=== PATIENT | male | born 1980 | race Caucasian/White ===

== ENCOUNTER 2019-03-26 12:46 | Inpatient (IN) ==
[2019-03-26 16:24] LABS: POC Blood Urea Nitrogen 17 mg/dl (6-20); POC CO2 24 mmol/L (22-30); POC Calcium, Ionized 1.11 mmol/L (1.16-1.32); POC Chloride 105 mmol/L (96-108); POC Creatinine 0.7 mg/dl (0.7-1.2); POC Glucose, Random 85 mg/dL (70-105); POC Potassium 4.1 mmol/L (3.3-5.1); POC Sodium 139 mmol/L (133-145)
[2019-03-26 17:18] LABS: Amphetamine Screen,Urine SUSPECT POSITIVE (NONDETECTED); Barbiturate Screen,Urine NONE DETECTED (NONDETECTED); Benzodiazepines Screen,Urine SUSPECT POSITIVE (NONDETECTED); Cannabinoid Screen,Urine SUSPECT POSITIVE (NONDETECTED); Cocaine Screen,Urine NONE DETECTED (NONDETECTED); Opiate Screen,Urine NONE DETECTED (NONDETECTED); Oxycodone, Urine Screen NONE DETECTED (NONDETECTED); Phencyclidine Screen,Urine NONE DETECTED (NONDETECTED)
[2019-03-26] MEDS ORDERED: MIDAZOLAM 5 MG/5 ML VIAL IV ONE (17:30)
[2019-03-26] MEDS ORDERED: ONDANSETRON 4 MG/2 ML VIAL IV ONE (17:30)
[2019-03-26] MEDS ORDERED: DEXAMETHASONE 10 MG/ML VIAL IV ONE (17:30)
[2019-03-26] MEDS ORDERED: PHENYLEPHRINE 10 MG/ML VIAL IV ONE (17:30)
[2019-03-26] MEDS ORDERED: KETAMINE 100 MG/ML ML IV ONE (17:30)
[2019-03-26] MEDS ORDERED: HYDROmorphone 2 MG/ML VIAL IV ONE (17:30)
[2019-03-26] MEDS ORDERED: PROPOFOL 200 MG/20 ML VIAL IV ONE (17:30)
[2019-03-26] MEDS ORDERED: GLYCOPYRROLATE 0.2 MG/ML VIAL IV ONE (17:30)
[2019-03-26] MEDS ORDERED: LIDOCAINE HCL/PF 100 MG/5 ML SYRINGE IV ONE (17:30)
[2019-03-26] MEDS ORDERED: fentaNYL 100 MCG/2 ML VIAL IV ONE (17:30)
[2019-03-26] MEDS ORDERED: KETOROLAC 30 MG/ML VIAL IV PRN (17:57)
[2019-03-26] MEDS ORDERED: NALOXONE HCL 0.4 MG/ML VIAL IV PRN (17:57)
[2019-03-26] MEDS ORDERED: MEPERIDINE 25 MG/ML SYRINGE IV PRN (17:57)
[2019-03-26] MEDS ORDERED: IPRATROPIUM/ALBUTEROL 3 ML AMPUL.NEB NEB PRN ×2 (17:57→20:20)
[2019-03-26] MEDS ORDERED: ONDANSETRON 4 MG/2 ML VIAL IV PRN ×2 (17:57→20:20)
[2019-03-26] MEDS ORDERED: METHOCARBAMOL 1,000 MG/10 ML VIAL IV PRN (17:57)
[2019-03-26] MEDS ORDERED: HYDROmorphone 2 MG/ML VIAL IV PRN (17:57)
[2019-03-26] MEDS ORDERED: ACETAMINOPHEN 1,000 MG/100 ML BOTTLE IV ONE (17:57)
[2019-03-26] MEDS ORDERED: BENZOCAINE/MENTHOL 1 LOZENGE PO PRN (17:57)
[2019-03-26] MEDS ORDERED: MEPERIDINE 50 MG/ML INJECTION IM PRN (17:57)
[2019-03-26] MEDS ORDERED: PROMETHAZINE 25 MG/ML VIAL IM PRN (17:57)
[2019-03-26] MEDS ORDERED: LACTATED RINGERS 250 ML IV PRN (17:57)
[2019-03-26] MEDS ORDERED: FLUMAZENIL 0.1 MG/ML ML IV PRN (17:57)
[2019-03-26] MEDS ORDERED: LACTATED RINGERS 1,000 ML IV SCH (18:00)
--- NOTE | 2019-03-26 18:56 | Brief Operative Note ---
Date of procedure: 03/26/19 Pre-op diagnosis: Septic olecranon bursitis Post-op diagnosis: same Procedure: I & D and olecranon bursectomy of Right septic olecranon bursitis Grafts/Implants: No Anesthesia: GLMA Findings: septic bursitis Complications: none Surgeon: Russ Prescott Airline Hostess: Hussain Mars Estimated blood loss (cc): 50 Tourniquet Time (Minutes): 33 Specimens Removed/Pathology: other (infected olecranon bursa) Condition: stable Disposition: PACU
--- NOTE | 2019-03-26 19:39 | Internal Med History&Physical ---
Medical - H&P: HPI Patient information: Note initiated : 03/26/19 at 7:38 pm Service Date, if different from initiated Date: [] Patient: Leonard Mathias 38 y/o M admitted on 03/26/19 for Infected elbow. Chief Complaint: [] Chief complaint: Right septic olecranon bursitis History of present illness: Mr. Mathias is a 38 year old M transferred from [facility]. Patient was admitted/ with right elbow swelling and pain and was diagnosed with right olecranon bursitis which was tapped and revealed MRSA. Patient was on Zosyn and vancomycin. However over the ensuing 48 hours of hospitalization patient failed to improve with extension of redness cellulitis down to the hand and pro ximally into the axilla. Subsequently orthopedics Dr. Prescott was consulted by Dr. Flores market intelligence consultant at [facility]. Patient initially presented with a white count of 21,000 which improved to 11,000 x 48 hours into treatment. Patient was transferred to [facility] in stable state and subsequently underwent operative intervention with olecranon bursectomy. Postoperatively patient was reviewed on the medical floor. I reviewed the charts from prior hospitalization. Patient carries a history of prediabetes with last A1c 6.4. He is postop. Patient is homeless has a history of methamphetamine abuse. His drug screen was positive however patient denied using IV drugs as per physician at [facility]. Review of systems 10 point review of system was performed and is negative except as discussed above Medical - H&P: PMH Medical history: Hypertension Substance abuse Tobacco dependence Pertinent family history: Nonsignificant Social history: Daily smoker Occasional alcohol Methamphetamine Medical - H&P: Meds Home Medications Medication Instructions Recorded Confirmed Type No Known Home Meds 03/26/19 03/26/19 History Allergies Allergy/AdvReac Type Severity Reaction Status Date / Time No Known Drug Allergies Allergy Verified 01/24/18 12:39 Medical - H&P: Exam - Constitutional Vitals: Temp Pulse Resp BP Pulse Ox 97.9 F 94 H 14 155/92 99 03/26/19 19:18 03/26/19 19:28 03/26/19 19:28 03/26/19 19:28 03/26/19 19:28 General appearance: morbidly obese Exam: Alert oriented Eye movement symmetrical Oral cavity dry No ear nose discharge Head normocephalic Neck no lymphadenopathy S1-S2 regular rhythm no murmur Diminished breath sounds bases Right upper extremity postoperative dressing Abdomen soft nontender Lower extremity no cyanosis clubbing no joint swelling Skin no suspicious lesion Psych alert cooperative Neuro nonfocal Medical - H&P: Reslt - Labs CBC & Chem 7: 03/27/19 04:00 03/27/19 04:00 Medical - H&P: A/P (1) Olecranon bursitis Current visit: Yes Status: Acute * Right olecranon bursitis-continue IV vancomycin/Zosyn history of MRSA infection. Await final sensitivities [facility]. Patient status post bursectomy/surgical intervention. Continue postop care as per orthopedics * Sepsis second above-white count normalized * Pain management continue as needed opioids * History of polysubstance abuse-continue monitoring for withdrawal symptoms * Hyponatremia resolved currently at 136 * Brief episode of hypertension while at previous hospital-continue monitoring. Systolics at goal * DVT prophylaxis ambulation * Full code Plan * Inpatient admission * Antibiotic coverage * Tailor antibiotic based on culture sensitivities * ID consult Medical - H&P: Qual - VTE Deep Vein Thrombosis/Pulmonary Embolism Present on Admission: No
[2019-03-26] MEDS: fentaNYL 100 MCG/2 ML VIAL IV PRN ×2 (19:51→19:54)
[2019-03-26] MEDS ORDERED: ACETAMINOPHEN 1,000 MG/100 ML BOTTLE IV PRN (20:20)
[2019-03-26] MEDS ORDERED: ACETAMINOPHEN 325 MG TABLET PO PRN (20:20)
[2019-03-26] MEDS ORDERED: MAGNESIUM HYDROXIDE 30 ML ORAL.SUSP PO PRN (20:20)
[2019-03-26] MEDS ORDERED: MELATONIN 3 MG TABLET PO PRN (20:20)
[2019-03-26] MEDS ORDERED: POTASSIUM CHLORIDE 20 MEQ PACKET PO PRN (20:20)
[2019-03-26] MEDS ORDERED: MAGNESIUM SULFATE 2 GM/50 ML BAG IV PRN (20:20)
[2019-03-26] MEDS ORDERED: traMADol 50 MG TABLET PO PRN (20:20)
[2019-03-26] MEDS ORDERED: VANCOMYCIN PER PHARMACY IV SCH (20:30)
[2019-03-26] MEDS: DOCUSATE SODIUM 100 MG CAPSULE PO SCH (21:00)
[2019-03-26] MEDS: HYDROcodone/APAP 10/325MG TABLET PO PRN (21:00)
[2019-03-26] MEDS: SENNOSIDES/DOCUSATE SODIUM 1 TAB TABLET PO SCH (21:00)
[2019-03-26] MEDS: PIPERACILLIN SODIUM/TAZOBACTAM 3.375 GM in DEXTROSE 5% IN WATER 50 ML IV SCH (21:52)
[2019-03-26] MEDS: 0.9 % SODIUM CHLORIDE 10 ML SYRINGE IV SCH (22:03)
[2019-03-26] MEDS: VANCOMYCIN 1,500 MG in 0.9 % SODIUM CHLORIDE 500 ML IV SCH (22:28)
[2019-03-27] MEDS: HYDROcodone/APAP 10/325MG TABLET PO PRN ×5 (00:58→20:08)
[2019-03-27] MEDS: PIPERACILLIN SODIUM/TAZOBACTAM 3.375 GM in DEXTROSE 5% IN WATER 50 ML IV SCH ×2 (00:58→05:49)
[2019-03-27] MEDS: 0.9 % SODIUM CHLORIDE 10 ML SYRINGE IV SCH ×3 (05:50→21:01)
[2019-03-27 06:37] LABS: Hematocrit 39.5 % (41.0-55.0); Hemoglobin 12.4 g/dL (13.5-16.5); Mean Cell Volume 88.6 fL (80.0-100.0); Mean Corpuscular HGB Conc 31.5 g/dL (31.0-36.0); Mean Platelet Volume 7.7 fL (7.4-10.4); Platelet Count 342 K/mcL (140-440); RBC 4.46 M/mcL (4.50-5.90); Red Cell Distribution Width 14.6 % (11.5-14.5); WBC 9.6 K/mcL (4.5-11.0)
[2019-03-27 07:14] LABS: ALT/SGPT 25 U/l (0-40); AST/SGOT 16 U/l (0-37); Albumin 2.9 gm/dL (3.2-5.2); Albumin/Globulin Ratio 0.7 (1.0-2.3); Alkaline Phosphatase 91 U/L (39-117); Bilirubin,Direct < 0.2 mg/dL (0.0-0.3); Bilirubin,Total 0.2 mg/dL (0.0-1.0); Blood Urea Nitrogen 16 mg/dl (6-20); C-Reactive Protein 8.4 mg/dl (0.0-0.8); Calcium 8.7 mg/dl (8.6-10.4); Carbon Dioxide 23 mmol/L (22-30); Chloride 101 mmol/L (96-108); Glomerular Filtration Rate 113; Glucose 160 mg/dL (70-105); Lactate Dehydrogenase 187 U/L (94-250); Phosphorous 3.4 mg/dL (2.7-4.5); Triglycerides 84 mg/dl (<150); Uric Acid 4.1 mg/dL (2.5-8.0)
--- NOTE | 2019-03-27 08:08 | Operative Note ---
DATE OF OPERATION: 03/26/2019 PREOPERATIVE DIAGNOSIS: Septic right olecranon bursitis of the right elbow. POSTOPERATIVE DIAGNOSIS: Septic right olecranon bursitis of the right elbow. PROCEDURES PERFORMED: Irrigation and debridement with olecranon bursectomy of the right elbow. SURGEON: Russ Prescott MD LOSS CONTROL CONSULTANT: Danny Mars PA-C. This provider's expertise and technical skill were required throughout the case. The PA assisted with preoperative coordination, intraoperative retraction, wound closure, dressing and splint application, as well as postoperative documentation and care coordination. ANESTHESIA: General. DRAINS: MITCH drain. SPECIMENS: Olecranon bursa. COMPLICATIONS: None. POSTOPERATIVE CONDITION: Stable. INDICATIONS FOR SURGERY: This is a 38-year-old male who was admitted approximately 4 days prior for an infected elbow. This was being treated at an outside facility; however, this was not resolving with antibiotics and minimal opening of the wound, and he was transferred down. FINDINGS AT SURGERY: There was an infected olecranon bursa. This did not extend beyond the bursa as far as the fluid collection. Post-procedure showed complete closure of the wound. PROCEDURE IN DETAIL: The patient had been seen preoperatively. Informed consent had been obtained after discussion of risks, benefits of surgery. Risks including, but not limited to, bleeding; continued infection; injury to nerves, blood vessels other surrounding structures; anesthetic risks; incomplete or no resolution of the infection, possibility of needing further surgery; possible wound complications. He understood and wished to proceed. Correct operative side was marked. The patient was taken to the operating room. General anesthesia induced. Right upper extremity was carefully prepped and draped in normal sterile fashion and a timeout was performed verifying patient name, operative site, and plan. Esmarch was used to exsanguinate the extremity and tourniquet was inflated. A midline incision was made over the olecranon with an ellipse around the open wound to excise it. This was done with a scalpel through skin. We then began tedious careful dissection, dissecting the bursa off of the skin. Careful attention was made to keep from buttonholing the skin. There was gross purulence within the bursa. Once we had gotten the margins, we then started dissecting it off the deep fascial layer, triceps tendon and the olecranon, and then completed this until it was completely excised and this was passed off as specimen. A finger dissection was used to make sure there was no further tracking around the periphery, which there was not. A rongeur was then used to remove any residual bursal tissue off the deep layer. Once we felt adequate excision, we then irrigated with IrriSept, an entire bottle. After waiting a couple of minutes we then irrigated copiously with Asepto syringe. We then dropped the tourniquet and a Bovie was used to obtain hemostasis. We then placed a drain making a small hole distally and pulling the drain out distal. We then used a 2-0 Monocryl to tack the skin flaps down to the underlying fascia. I then also used this to start closing the proximal and distal margins of the subcutaneous layer of the skin. The ellipsed area was under significant tension, so we used a 4-0 Prolene near-far- far-near as well as some everting mattress stitches and then completed skin closure with the Prolene. A drain was hooked to MITCH bulb suction. Xeroform sterile dressings were applied. The arm was then placed in a posterior splint and the patient was then awakened, extubated, and transferred to recovery in stable condition. BJB:henry Job ID: [id number] Doc ID: [id number] Russ Prescott MD
--- NOTE | 2019-03-27 08:16 | Consultation ---
DATE OF CONSULTATION: 03/26/2019 REQUESTING PHYSICIAN: Devonte Shrestha M.D. REASON FOR CONSULTATION: Infected right olecranon bursitis. HISTORY: This is a 38-year-old male who was transferred down from [facility] where he had been admitted approximately 4 days prior with right elbow swelling and pain. He was diagnosed with olecranon bursitis and was started on antibiotics. They had tapped the elbow, and it began draining and actually started having extension of the cellulitis down the hand and proximally up to the axilla. I was contacted by Dr. Flores who wished to transfer the patient down. He does have a history of drug abuse. PAST MEDICAL HISTORY: Tobacco dependence, substance abuse, and hypertension. PAST SURGICAL HISTORY: None. MEDICATIONS: He takes no medications regularly. ALLERGIES: He has no known drug allergies. SOCIAL HISTORY: He smokes tobacco and marijuana, as well as uses methamphetamine and occasional alcohol use. He is reportedly homeless. FAMILY HISTORY: Noncontributory. REVIEW OF SYSTEMS: Negative except per the HPI. PHYSICAL EXAMINATION: VITAL SIGNS: At admission, temperature 97.9, pulse 94, respirations 14, blood pressure 155/92. GENERAL: He appears his stated age. No acute distress. He is obese. MUSCULOSKELETAL: Right upper extremity on inspection shows diffuse edema with redness extending through nearly the whole length of the arm. There is purulent drainage coming from the elbow with approximately a centimeter open wound with a few other small punctate wounds. He is able to flex and extend the elbow without significant pain. There is no gross instability. His strength is 5/5 distally. Radial pulse is 2+. Sensation to light touch is grossly intact. His opposite upper extremity in comparison is normal to inspection, range of motion, stability and strength. IMPRESSION: Right septic olecranon bursitis in a 38-year-old drug user. PLAN: I recommend proceeding with surgical irrigation and debridement with olecranon bursectomy. I discussed with him risks of surgery which include, but not limited to, bleeding; continued infection; injury to nerves, blood vessels, other surrounding structures; anesthetic risks; incomplete or no resolution of the infection; possibility of needing further surgeries; possible wound complications. He understands these risks and wished to proceed. We will defer antibiotic coverage to Hospitalist or Infectious Disease service. RUPAL:malena Job ID: [id number] Doc ID: [id number] Russ Prescott MD
[2019-03-27] MEDS: VANCOMYCIN 1,500 MG in 0.9 % SODIUM CHLORIDE 500 ML IV SCH ×2 (09:03→20:09)
[2019-03-27] MEDS: DOCUSATE SODIUM 100 MG CAPSULE PO SCH ×2 (09:04→20:08)
[2019-03-27] MEDS: MULTIVIT,THER IRON,CA,FA & MIN 1 TABLET PO SCH (09:04)
--- NOTE | 2019-03-27 09:59 | Orthopedic Progress Note ---
Orthopedics - Auxillary Note - Subjective Patient Information: Note initiated : 03/27/19 at 9:54 am Service Date, if different from initiated Date: [] Patient: Leonard Mathias 38 y/o M admitted on 03/26/19 for Infected elbow. Chief Complaint: no c/o. bandages c/d/i nvi-distal Vital Signs Temp Pulse Resp BP Pulse Ox 03/27/19 07:55 96.8 F L 92 H 20 130/78 98 03/27/19 04:37 98 F 97 H 16 140/89 99 03/26/19 23:56 97.6 F 99 H 16 127/76 100 03/26/19 22:10 97.5 F 94 H 16 128/79 94 03/26/19 21:40 98.1 F 99 H 16 134/84 93 03/26/19 21:10 97.5 F 98 H 16 140/91 96 03/26/19 20:56 97.6 F 92 H 16 142/86 96 03/26/19 20:40 97.5 F 90 16 136/87 99 03/26/19 20:25 97.9 F 94 H 16 143/85 98 03/26/19 20:10 97.5 F 98 H 16 138/94 97 03/26/19 20:00 98.3 F 89 16 167/77 96 03/26/19 19:47 98.4 F 99 H 15 156/71 97 03/26/19 19:33 98.3 F 102 H 18 147/74 95 03/26/19 19:28 94 H 14 155/92 99 03/26/19 19:23 94 H 12 129/80 99 03/26/19 19:18 97.9 F 96 H 12 128/75 98 03/26/19 15:36 96.7 F L 90 18 124/85 97 Intake and Output 03/26/19 03/27/19 03/27/19 21:59 05:59 13:59 Intake Total 2400 1100 360 Output Total 15 725 Balance 2400 1085 -365 Intake: IV 100 600 Zosyn 3.375 gm In Dextrose 5% 100 in Water 50 ml @ 100 mls/hr IV Q6H [facility] Rx#:[id number] Vancomycin 1,500 mg In Sodium 500 Chloride 0.9% 500 ml @ 333.3 mls/hr IV Q12H [facility] Rx#: [id number] Oral 800 500 360 IV - Manual Only 1500 Output: Drainage 15 Elbow MITCH Drain 15 Void Amount 725 Other: Meal snak Breakfast Percent of Meal Consumed 100% 100% 100% Feeding Ability Independent Independent Urine Appearance Clear # Voids 550 # Bowel Movements 1 Weight 300 lb Laboratory Results - last 24 hr 03/26/19 03/26/19 03/27/19 16:16 16:40 04:00 WBC Cancelled Corrected WBC Cancelled RBC Cancelled Hgb Cancelled Hct Cancelled POC Hct 39.0 L MCV Cancelled MCH Cancelled MCHC Cancelled RDW Cancelled Plt Count Cancelled MPV Cancelled Gran % Cancelled Lymph % (Auto) Cancelled Tucker % (Auto) Cancelled Eos % (Auto) Cancelled Baso % (Auto) Cancelled Gran # Cancelled Lymph # (Auto) Cancelled Tucker # (Auto) Cancelled Eos # (Auto) Cancelled Baso # (Auto) Cancelled Band Neutrophils % Differential Comment Cancelled ESR 95 H POC Sodium 139 Sodium POC Potassium 4.1 Potassium POC Chloride 105 Chloride Carbon Dioxide POC Total CO2 24 Anion Gap POC BUN 17 BUN Creatinine POC Creatinine 0.7 GFR Calculation Glucose POC Glucose 85 Uric Acid Calcium POC WB Ioniz Calcium 1.11 L Phosphorus Magnesium Total Bilirubin Direct Bilirubin GGT AST ALT Alkaline Phosphatase Lactate Dehydrogenase C-Reactive Protein Total Protein Albumin Globulin Albumin/Globulin Ratio Triglycerides Urine Opiates Screen None detected Ur Opiates Confirm Not Reportable Ur Oxycodone Screen None detected Urine Methadone Screen None detected Ur Methadone Confirm Not Reportable Ur Barbiturates Screen None detected Ur Barbiturate Confirm Not Reportable Ur Phencyclidine Scrn None detected Urine PCP Confirm Not Reportable Ur Amphetamines Screen Suspect positive A U Amphetamines Confirm Not Reportable U Benzodiazepines Scrn Suspect positive A U Benzodiazepine Confm Not Reportable Urine Cocaine Screen None detected Urine Cocaine Confirm Not Reportable U Cannabinoids Confirm Not Reportable U Marijuana (THC) Screen Suspect positive A 03/27/19 03/27/19 04:00 04:00 WBC 9.6 Corrected WBC RBC 4.46 L Hgb 12.4 L Hct 39.5 L POC Hct MCV 88.6 MCH 27.9 MCHC 31.5 RDW 14.6 H Plt Count 342 MPV 7.7 Gran % Lymph % (Auto) Tucker % (Auto) Eos % (Auto) Baso % (Auto) Gran # Lymph # (Auto) Tucker # (Auto) Eos # (Auto) Baso # (Auto) Band Neutrophils % Not Reportable Differential Comment ESR POC Sodium Sodium 138 POC Potassium Potassium 5.3 H POC Chloride Chloride 101 Carbon Dioxide 23 POC Total CO2 Anion Gap 14.0 POC BUN BUN 16 Creatinine 0.8 POC Creatinine GFR Calculation 113 Glucose 160 H POC Glucose Uric Acid 4.1 Calcium 8.7 POC WB Ioniz Calcium Phosphorus 3.4 Magnesium 2.2 Total Bilirubin 0.2 Direct Bilirubin < 0.2 GGT 24 AST 16 ALT 25 Alkaline Phosphatase 91 Lactate Dehydrogenase 187 C-Reactive Protein 8.4 H Total Protein 6.9 Albumin 2.9 L Globulin 4.0 H Albumin/Globulin Ratio 0.7 L Triglycerides 84 Urine Opiates Screen Ur Opiates Confirm Ur Oxycodone Screen Urine Methadone Screen Ur Methadone Confirm Ur Barbiturates Screen Ur Barbiturate Confirm Ur Phencyclidine Scrn Urine PCP Confirm Ur Amphetamines Screen U Amphetamines Confirm U Benzodiazepines Scrn U Benzodiazepine Confm Urine Cocaine Screen Urine Cocaine Confirm U Cannabinoids Confirm U Marijuana (THC) Screen s/p R elbow I&D for septic olecranon bursitis-stable Drain removed. Splint reapplied. cont management per hospitalist. Consider Zyvox 400mg bid x10 days. Oral abx preferred since pt has hx of drug use.
[2019-03-27 10:32] LABS: Band Neutrophils % 4 % (0-10); Basophils % (Manual) 1 % (0-2); Lymphocytes % 5 % (15-49); Monocytes % (Manual) 3 % (1-12); Platelet Estimate NORMAL (NORMAL); RBC Morphology NORMAL (NORMAL); Segmented Neutrophils % 87 % (38-78)
[2019-03-27] MEDS ORDERED: DEXTROSE 50% 50 ML VIAL IV PRN (11:15)
[2019-03-27] MEDS ORDERED: DEXTROSE 31 GM ORAL.SUSP PO PRN (11:15)
--- NOTE | 2019-03-27 11:16 | Internal Med Progress Note ---
Medical - PN: Subj Patient information: Note initiated : 03/27/19 at 11:12 am Service Date, if different from initiated Date: [] Patient: Leonard Mathias 38 y/o M admitted on 03/26/19 for Infected elbow. Chief Complaint: [] Interval history: Mr. Mathias is a 38 year old M transferred from [facility]. Patient was admitted/ with right elbow swelling and pain and was diagnosed with right olecranon bursitis which was tapped and revealed MRSA. Patient was on Zosyn and vancomycin. However over the ensuing 48 hours of hospitalization patient failed to improve with extension of redness cellulitis down to the hand and proximally into the axilla. Subsequently orthopedics Dr. Prescott was consulted by Dr. Flores district sales coordinator at [facility]. Patient initially presented with a white count of 21,000 which improved to 11,000 x 48 hours into treatment. Patient was transferred to [facility] in stable state and subsequently underwent operative intervention with olecranon bursectomy. Postoperatively patient was reviewed on the medical floor. I reviewed the charts from prior [facility] pitalization. Patient carries a history of prediabetes with last A1c 6.4. He is postop. Patient is homeless has a history of methamphetamine abuse. His drug screen was positive however patient denied using IV drugs as per physician at [facility]. 03/27-doing well postoperative. Postop pain well controlled. No overnight fever chills. White count stable. Cultures reviewed from [facility]. MRSA on wound. ID consulted. Await further recommendations. Continue antibiotic as per ID. Case discussed with Dr. Prescott. No clinical evidence of septic arthritis per orthopedics. - Constitutional Vitals: Vital Signs Temp Pulse Resp BP Pulse Ox 96.8 F L 92 H 20 130/78 98 03/27/19 07:55 03/27/19 07:55 03/27/19 07:55 03/27/19 07:55 03/27/19 07:55 Period Temp Pulse Resp BP Sys/Bartlett Pulse Ox Last 24 Hr 96.7 F-98.4 F 89-102 12-20 124-167/71-94 93-100 Intake and Output 03/26/19 03/27/19 03/27/19 21:59 05:59 13:59 Intake Total 2400 1100 910 Output Total 15 735 Balance 2400 1085 175 Weight 300 lb Intake & Output: Intake & Output 03/26/19 03/27/19 03/27/19 21:59 05:59 13:59 Intake Total 2400 1100 910 Output Total 15 735 Balance 2400 1085 175 Weight 300 lb Intake: IV 100 600 550 Zosyn 3.375 gm In Dextrose 5% 100 50 in Water 50 ml @ 100 mls/hr IV Q6H [facility] Rx#:[id number] Vancomycin 1,500 mg In Sodium 500 500 Chloride 0.9% 500 ml @ 333.3 mls/hr IV Q12H [facility] Rx#: [id number] Oral 800 500 360 IV - Manual Only 1500 Output: Drainage 15 10 Elbow MITCH Drain 15 10 Void Amount 725 Other: Meal snak Breakfast Percent of Meal Consumed 100% 100% 100% Feeding Ability Independent Independent Urine Appearance Clear # Voids 550 # Bowel Movements 1 General appearance: morbidly obese Exam: Nondistressed alert oriented No anxiety Nonlabored breathing Morbidly obese Medical - PN: Obj Da - Labs CBC & Chem 7: 03/27/19 04:00 03/27/19 04:00 Labs: Abnormal Lab Results 03/27/19 03/27/19 03/27/19 04:00 04:00 04:00 RBC 4.46 L Hgb 12.4 L Hct 39.5 L POC Hct RDW 14.6 H Seg Neutrophils % 87 H Lymphocytes % 5 L ESR 95 H Potassium 5.3 H Glucose 160 H POC WB Ioniz Calcium C-Reactive Protein 8.4 H Albumin 2.9 L Globulin 4.0 H Albumin/Globulin Ratio 0.7 L Ur Amphetamines Screen U Benzodiazepines Scrn U Marijuana (THC) Screen 03/26/19 03/26/19 16:40 16:16 RBC Hgb Hct POC Hct 39.0 L RDW Seg Neutrophils % Lymphocytes % ESR Potassium Glucose POC WB Ioniz Calcium 1.11 L C-Reactive Protein Albumin Globulin Albumin/Globulin Ratio Ur Amphetamines Screen Suspect positive A U Benzodiazepines Scrn Suspect positive A U Marijuana (THC) Screen Suspect positive A Meds: Medications Acetaminophen (Tylenol) 650 mg PO Q4-6HP PRN PRN Reason: PAIN/FEVER > 101 Hydrocodone Bitart/Acetaminophen ([place] 10/325mg) 1 tab PO Q4-6HP PRN PRN Reason: PAIN LEVEL 3-6 Last Admin: 03/27/19 07:09 Dose: 1 tab Documented by: Albuterol/Ipratropium (Duoneb) 3 ml NEB Q4HP PRN PRN Reason: Shortness Of Breath Docusate Sodium (Colace) 100 mg PO BID [facility] Last Admin: 03/27/19 09:04 Dose: 100 mg Documented by: Vancomycin HCl 1,500 mg/ (Sodium Chloride) 500 mls @ 333.3 mls/hr IV Q12H [facility]; Protocol Last Infusion: 03/27/19 10:55 Dose: Infused Documented by: Magnesium Sulfate (Magnesium Sulfate) 2 gm in 50 mls @ 50 mls/hr IV UD PRN PRN Reason: MG = or < 1.7 Acetaminophen (Ofirmev) 1,000 mg in 100 mls @ 200 mls/hr IV Q6HP PRN PRN Reason: PAIN/FEVER > 101 Iron Carb/Multivit/[place]/Folic Acid (Multivitamin W/Minerals) 1 tab PO DAILY [facility] Last Admin: 03/27/19 09:04 Dose: 1 tab Documented by: Magnesium Hydroxide (Milk Of Magnesia) 30 ml PO HSP PRN PRN Reason: Constipation Melatonin (Melatonin 3mg Tablet) 3 mg PO HSP PRN PRN Reason: Insomnia Morphine Sulfate (Morphine) 2 mg IV Q1HP PRN PRN Reason: PAIN LEVEL > 6 Mupirocin (Bactroban Oint 2%) 1 dose NARES BID [facility] Stop: 04/01/19 21:00 Ondansetron HCl (Zofran) 4 mg IV Q4-6HP PRN PRN Reason: Nausea And Vomiting Potassium Chloride (Klor-Con) 40 meq PO DAILYP PRN PRN Reason: K+ < 3.5 Senna/Docusate Sodium (Senna Plus Tablet) 1 tab PO HS [facility] Last Admin: 03/26/19 21:00 Dose: 1 tab Documented by: Sodium Chloride (Saline Flush) 10 ml IV Q8 [facility] Last Admin: 03/27/19 05:50 Dose: 10 ml Documented by: Tramadol HCl (Ultram) 50 mg PO Q4-6HP PRN PRN Reason: Pain Vancomycin HCl (Vancomycin Per Pharmacy) 1 order IV UD [facility]; Protocol Medical - PN: A/P - Time Spent With Patient Total time spent is greater than 50% in coordination of care (as documented) at patient's floor/unit and/or counseling patient: 25 - 35 minutes (1) Olecranon bursitis Status: Acute Assessment and plan: * Right olecranon bursitis-continue IV vancomycin , MRSA on wound culture. ID consulted. Postoperative management as per orthopedics * Postop pain management as per orthopedics clinically resolved white count normalized * Sepsis clinically resolved. * History of polysubstance abuse-continue monitoring for withdrawal symptoms * Elevated blood sugars Dysmetabolic syndrome. A1c 6.4. Sliding scale insulin. * Hyponatremia resolved * DVT prophylaxis ambulation * Full code Plan * ID consult * Antibiotic as per ID Current Visit: Yes Medical - PN: Qual - VTE Deep Vein Thrombosis/Pulmonary Embolism Present on Admission: No
--- NOTE | 2019-03-27 11:25 | Infectious Disease Consult ---
History of Present Illness Patient information: Note initiated : 03/27/19 at 11:13 am Service Date, if different from initiated Date: [] Patient: Leonard Mathias 38 y/o M admitted on 03/26/19 for Infected elbow. Chief Complaint: [] Requesting Physician: Devonte Shrestha Reason for Consult: Rt elbow MRSA bursitis Chief complaint: my right elbow hurts History of present illness: 38 year old homeless man with past Hx of injection drug use and current use of marijuana and smoking meth accidently bumped his elbow into a blunt object and noticed swelling and redness of right elbow about 6 days ago. The swelling and redness progressively got worse, along with drainage of small amounts of dark red blood. He went to [facility] on 03/23 and was diagnosed with right olecranon bursitis which was tapped. Patient was started on IV Zosyn and vancomycin. The cultures grew MRSA. Because of expanding redness and swelling to the forearm and hand, pt was transferred to [facility] for surgical drainage. At adm to [facility], pt's WBC was 21k with neutrophillic predominance. IV Vanc and IV Zosyn were contd. He underwent I & D and olecranon bursectomy of Right septic olecranon bursitis on 03/26/19, with op cx sent, currently pending. At time of visit, pt felt better, but endorsed pain and swelling in right upper extremity. Denied any fever, chills, n/v, diarrhea. His MITCH drain was pulled out by Ortho today. He mentioned that he is homeless and will go to living on street after discharge. Mentions that he doesnot use IV drugs but smokes meth and marijuana. Review of Systems All systems PM: reviewed and no additional remarkable complaints except as stated Constitutional: as per HPI Past History Past family history: not pertinent Past social history: pt is homeless smokes marijuana, meth. doesnot inj any drugs currently Medications and Allergies Home Medications Medication Instructions Recorded Confirmed Type No Known Home Meds 03/26/19 03/26/19 History Allergies Allergy/AdvReac Type Severity Reaction Status Date / Time No Known Drug Allergies Allergy Verified 01/24/18 12:39 Physical Examination Vital signs: Temp Pulse Resp BP Pulse Ox 36.0 C L 92 H 20 130/78 98 03/27/19 07:55 03/27/19 07:55 03/27/19 07:55 03/27/19 07:55 03/27/19 07:55 General appearance: appears uncomfortable Eyes pulmonary: nonicteric ENT: oropharynx moist, other (no thrush) Auscultation: bilateral: clear Cardiovascular: other (s1 s2 normal, no m/r/g) Gastrointestinal: normoactive bowel sounds Extremities: other (right hand swollen, can move fingers without any difficulty) Musculoskeletal: other (right elbow covered in dressing) normal mental status Results - Laboratory Findings CBC and BMP: 03/27/19 04:00 03/27/19 04:00 Abnormal lab findings: Abnormal Labs 03/26/19 03/26/19 03/27/19 16:16 16:40 04:00 RBC Hgb Hct POC Hct 39.0 L RDW Seg Neutrophils % Lymphocytes % ESR 95 H Potassium Glucose POC WB Ioniz Calcium 1.11 L C-Reactive Protein Albumin Globulin Albumin/Globulin Ratio Ur Amphetamines Screen Suspect positive A U Benzodiazepines Scrn Suspect positive A U Marijuana (THC) Screen Suspect positive A 03/27/19 03/27/19 04:00 04:00 RBC 4.46 L Hgb 12.4 L Hct 39.5 L POC Hct RDW 14.6 H Seg Neutrophils % 87 H Lymphocytes % 5 L ESR Potassium 5.3 H Glucose 160 H POC WB Ioniz Calcium C-Reactive Protein 8.4 H Albumin 2.9 L Globulin 4.0 H Albumin/Globulin Ratio 0.7 L Ur Amphetamines Screen U Benzodiazepines Scrn U Marijuana (THC) Screen Microbiology: Microbiology 03/26/19 18:04 Elbow - Right Gram Stain - Final 03/26/19 18:04 Elbow - Right Wound Culture - Preliminary 03/26/19 18:04 Elbow - Right Gram Stain - Final Assessment and Plan - Narrative A/P Narrative: A: 1. Rt elbow septic bursitis and surrounding cellulitis due to MRSA: - POD 1 after surgical I&D of right elbow, op Cx growing Staph aureus, sensi pending - no sepsis - right hand is still swollen 2. Homeless 3. MRSA carrier: - nasal MRSA screen +ve 4. Past history of IV drug use Recommendations: - Continue IV Vanc per pharmacy assisted dosing. Check trough before the 4th dose (target 10-20). He could be switched to PO Linezolid 600 mg bid near discharge for 2 weeks with ID clinic f/u - Start MRSA decolonization for 5 days with: Intranasal mupirocin 2% intranasally bid below neck whole body CHG bathing once daily - Spoke with SW about need for placement given this patient is homeless, is at higher risk for reinfection and poor wound healing if he goes back to live on the street will follow Elliot Alejandre MD Infectious diseases
[2019-03-27] MEDS: NICOTINE 14 MG PATCH TOPICAL SCH (12:27)
[2019-03-27] MEDS: INSULIN LISPRO 1 UNIT/0.01 ML UNIT SQ SCH ×3 (12:27→20:12)
[2019-03-27] MEDS: SENNOSIDES/DOCUSATE SODIUM 1 TAB TABLET PO SCH (20:08)
[2019-03-27] MEDS: MUPIROCIN OINT 2% 22GM NARES SCH (20:09)
[2019-03-28] MEDS: HYDROcodone/APAP 10/325MG TABLET PO PRN ×4 (04:10→23:03)
[2019-03-28] MEDS: 0.9 % SODIUM CHLORIDE 10 ML SYRINGE IV SCH ×4 (04:11→23:04)
[2019-03-28 05:25] LABS: Hematocrit 36.2 % (41.0-55.0); Hemoglobin 11.6 g/dL (13.5-16.5); Mean Cell Volume 87.6 fL (80.0-100.0); Mean Platelet Volume 7.3 fL (7.4-10.4); Platelet Count 370 K/mcL (140-440); RBC 4.13 M/mcL (4.50-5.90); Red Cell Distribution Width 15.4 % (11.5-14.5); WBC 9.9 K/mcL (4.5-11.0)
[2019-03-28 05:58] LABS: ALT/SGPT 22 U/l (0-40); AST/SGOT 15 U/l (0-37); Albumin 2.7 gm/dL (3.2-5.2); Albumin/Globulin Ratio 0.8 (1.0-2.3); Alkaline Phosphatase 62 U/L (39-117); Bilirubin,Direct < 0.2 mg/dL (0.0-0.3); Bilirubin,Total 0.2 mg/dL (0.0-1.0); Blood Urea Nitrogen 14 mg/dl (6-20); Calcium 8.5 mg/dl (8.6-10.4); Carbon Dioxide 27 mmol/L (22-30); Chloride 102 mmol/L (96-108); Globulin 3.5 gm/dL (2.2-3.7); Glomerular Filtration Rate 119; Glucose 110 mg/dL (70-105); Lactate Dehydrogenase 127 U/L (94-250); Phosphorous 3.4 mg/dL (2.7-4.5); Triglycerides 68 mg/dl (<150); Uric Acid 4.1 mg/dL (2.5-8.0)
[2019-03-28 06:13] LABS: Eosinophils % (Manual) 1 % (0-7); Lymphocytes % 29 % (15-49); Monocytes % (Manual) 3 % (1-12); Platelet Estimate NORMAL (NORMAL); RBC Morphology NORMAL (NORMAL); Segmented Neutrophils % 67 % (38-78)
--- NOTE | 2019-03-28 08:57 | Orthopedic Progress Note ---
Orthopedics - Auxillary Note - Subjective Patient Information: Note initiated : 03/28/19 at 8:54 am Service Date, if different from initiated Date: [] Patient: Leonard Mathias 38 y/o M admitted on 03/26/19 for Infected elbow. Chief Complaint: no c/o. bandages c/d/i nvi-distal Vital Signs Temp Pulse Resp BP Pulse Ox 03/28/19 03:55 97.8 F 94 H 20 158/90 97 03/28/19 00:00 97.8 F 95 H 16 147/84 96 03/27/19 19:57 95 H 16 96 03/27/19 19:53 97.8 F 95 H 16 130/76 96 03/27/19 15:45 99.3 F H 100 H 16 124/60 96 03/27/19 12:00 96.9 F L 102 H 20 125/70 97 Intake and Output 03/27/19 03/28/19 03/28/19 21:59 05:59 13:59 Intake Total 1320 1100 Output Total 1650 600 Balance -330 500 Intake: IV 500 Vancomycin 1,500 mg In Sodium 500 Chloride 0.9% 500 ml @ 333.3 mls/hr IV Q12H [facility] Rx#: [id number] Oral 1320 600 Output: Void Amount 1650 600 Other: Meal Dinner Percent of Meal Consumed 100% Urine Appearance Clear # Voids 1 Weight 301 lb Laboratory Results - last 24 hr 03/27/19 03/28/19 03/28/19 04:00 03:50 03:50 WBC 9.9 RBC 4.13 L Hgb 11.6 L Hct 36.2 L MCV 87.6 MCH 28.0 MCHC 32.0 RDW 15.4 H Plt Count 370 MPV 7.3 L Total Counted 100 100 Seg Neutrophils % 87 H 67 Band Neutrophils % 4 Not Reportable Lymphocytes % 5 L 29 Monocytes % (Manual) 3 3 Eosinophils % (Manual) 1 Basophils % (Manual) 1 Platelet Estimate Normal Normal RBC Morphology Normal Normal Sodium 139 Potassium 4.1 Chloride 102 Carbon Dioxide 27 Anion Gap 10.0 BUN 14 Creatinine 0.7 GFR Calculation 119 Glucose 110 H Uric Acid 4.1 Calcium 8.5 L Phosphorus 3.4 Magnesium 2.0 Total Bilirubin 0.2 Direct Bilirubin < 0.2 GGT 19 AST 15 ALT 22 Alkaline Phosphatase 62 Lactate Dehydrogenase 127 Total Protein 6.2 Albumin 2.7 L Globulin 3.5 Albumin/Globulin Ratio 0.8 L Triglycerides 68 s/p R elbow I&D-stable cont management per hospitalist and ID signing off from ORtho service. f/u in 2 weeks for suture removal and recheck. cont to wear splint
[2019-03-28] MEDS: NICOTINE 14 MG PATCH TOPICAL SCH (09:18)
[2019-03-28] MEDS: INSULIN LISPRO 1 UNIT/0.01 ML UNIT SQ SCH ×4 (09:19→21:02)
[2019-03-28] MEDS: MULTIVIT,THER IRON,CA,FA & MIN 1 TABLET PO SCH (09:20)
[2019-03-28] MEDS: MUPIROCIN OINT 2% 22GM NARES SCH ×2 (09:20→20:20)
[2019-03-28] MEDS: DOCUSATE SODIUM 100 MG CAPSULE PO SCH ×2 (09:20→21:01)
--- NOTE | 2019-03-28 10:37 | Internal Med Progress Note ---
Medical - PN: Subj Patient information: Note initiated : 03/28/19 at 10:34 am Service Date, if different from initiated Date: [] Patient: Leonard Mathias 38 y/o M admitted on 03/26/19 for Infected elbow. Chief Complaint: [] Interval history: Mr. Mathias is a 38 year old M transferred from [facility]. Patient was admitted/ with right elbow swelling and pain and was diagnosed with right olecranon bursitis which was tapped and revealed MRSA. Patient was on Zosyn and vancomycin. However over the ensuing 48 hours of hospitalization patient failed to improve with extension of redness cellulitis down to the hand and proximally into the axilla. Subsequently orthopedics Dr. Prescott was consulted by Dr. Flores featheredger and reducer machine at [facility]. Patient initially presented with a white count of 21,000 which improved to 11,000 x 48 hours into treatment. Patient was transferred to [facility] in stable state and subsequently underwent operative intervention with olecranon bursectomy. Postoperatively patient was reviewed on the medical floor. I reviewed the charts from prior [facility] pitalization. Patient carries a history of prediabetes with last A1c 6.4. He is postop. Patient is homeless has a history of methamphetamine abuse. His drug screen was positive however patient denied using IV drugs as per physician at [facility]. 03/27-doing well postoperative. Postop pain well controlled. No overnight fever chills. White count stable. Cultures reviewed from [facility]. MRSA on wound. ID consulted. Await further recommendations. Continue antibiotic as per ID. Case discussed with Dr. Prescott. No clinical evidence of septic arthritis per orthopedics. 03/28-patient doing well. No overnight events. White count 9.9. On IV antibi otic coverage as per ID. Continue inpatient care. No other concerns expressed to nursing staff except for elevated blood sugars. On CC diet/started on metformin. - Constitutional Vitals: Vital Signs Temp Pulse Resp BP Pulse Ox 97.8 F 94 H 20 158/90 97 03/28/19 03:55 03/28/19 03:55 03/28/19 03:55 03/28/19 03:55 03/28/19 03:55 Period Temp Pulse Resp BP Sys/Bartlett Pulse Ox Last 24 Hr 96.9 F-99.3 F 94-102 16-20 124-158/60-90 96-97 Intake and Output 03/27/19 03/28/19 03/28/19 21:59 05:59 13:59 Intake Total 1320 1100 Output Total 1650 600 Balance -330 500 Weight 301 lb Intake & Output: Intake & Output 03/27/19 03/28/19 03/28/19 21:59 05:59 13:59 Intake Total 1320 1100 Output Total 1650 600 Balance -330 500 Weight 301 lb Intake: IV 500 Vancomycin 1,500 mg In Sodium 500 Chloride 0.9% 500 ml @ 333.3 mls/hr IV Q12H [facility] Rx#: [id number] Oral 1320 600 Output: Void Amount 1650 600 Other: Meal Dinner Percent of Meal Consumed 100% Urine Appearance Clear # Voids 1 General appearance: no acute distress Exam: Alert oriented Nonlabored breathing Postoperative dressing in place No significant swelling right upper extremity Medical - PN: Obj Da - Labs CBC & Chem 7: 03/28/19 03:50 03/28/19 03:50 Labs: Abnormal Lab Results 03/28/19 03/28/19 03/27/19 03:50 03:50 04:00 RBC 4.13 L Hgb 11.6 L Hct 36.2 L POC Hct RDW 15.4 H MPV 7.3 L Seg Neutrophils % Lymphocytes % ESR Potassium 5.3 H Glucose 110 H 160 H Calcium 8.5 L POC WB Ioniz Calcium C-Reactive Protein 8.4 H Albumin 2.7 L 2.9 L Globulin 4.0 H Albumin/Globulin Ratio 0.8 L 0.7 L Ur Amphetamines Screen U Benzodiazepines Scrn U Marijuana (THC) Screen 03/27/19 03/27/19 03/26/19 04:00 04:00 16:40 RBC 4.46 L Hgb 12.4 L Hct 39.5 L POC Hct RDW 14.6 H MPV Seg Neutrophils % 87 H Lymphocytes % 5 L ESR 95 H Potassium Glucose Calcium POC WB Ioniz Calcium C-Reactive Protein Albumin Globulin Albumin/Globulin Ratio Ur Amphetamines Screen Suspect positive A U Benzodiazepines Scrn Suspect positive A U Marijuana (THC) Screen Suspect positive A 03/26/19 16:16 RBC Hgb Hct POC Hct 39.0 L RDW MPV Seg Neutrophils % Lymphocytes % ESR Potassium Glucose Calcium POC WB Ioniz Calcium 1.11 L C-Reactive Protein Albumin Globulin Albumin/Globulin Ratio Ur Amphetamines Screen U Benzodiazepines Scrn U Marijuana (THC) Screen Meds: Medications Acetaminophen (Tylenol) 650 mg PO Q4-6HP PRN PRN Reason: PAIN/FEVER > 101 Hydrocodone Bitart/Acetaminophen ([place] 10/325mg) 1 tab PO Q4-6HP PRN PRN Reason: PAIN LEVEL 3-6 Last Admin: 03/28/19 09:20 Dose: 1 tab Documented by: Albuterol/Ipratropium (Duoneb) 3 ml NEB Q4HP PRN PRN Reason: Shortness Of Breath Dextrose (Dextrose 50%) 0 ml IV UD PRN PRN Reason: Hypoglycemia Diagnostic Test (Pha) (Accu-Chek) 1 each FS [facility] Last Admin: 03/28/19 09:18 Dose: 1 each Documented by: Docusate Sodium (Colace) 100 mg PO BID [facility] Last Admin: 03/28/19 09:20 Dose: 100 mg Documented by: Glucose (Insta-Glucose) 15 gm PO PRN PRN PRN Reason: Hypoglycemia Vancomycin HCl 1,500 mg/ (Sodium Chloride) 500 mls @ 333.3 mls/hr IV Q12H [facility]; Protocol Last Infusion: 03/28/19 04:11 Dose: Infused Documented by: Magnesium Sulfate (Magnesium Sulfate) 2 gm in 50 mls @ 50 mls/hr IV UD PRN PRN Reason: MG = or < 1.7 Acetaminophen (Ofirmev) 1,000 mg in 100 mls @ 200 mls/hr IV Q6HP PRN PRN Reason: PAIN/FEVER > 101 Insulin Human Lispro (Humalog) 0 unit SQ [facility]; Protocol Last Admin: 03/28/19 09:19 Dose: Not Given Documented by: Iron Carb/Multivit/Malted Milk Mixer/Folic Acid (Multivitamin W/Minerals) 1 tab PO DAILY [facility] Last Admin: 03/28/19 09:20 Dose: 1 tab Documented by: Magnesium Hydroxide (Milk Of Magnesia) 30 ml PO HSP PRN PRN Reason: Constipation Melatonin (Melatonin 3mg Tablet) 3 mg PO HSP PRN PRN Reason: Insomnia Metformin [facility] ([facility]) [facility] Morphine Sulfate (Morphine) 2 mg IV Q1HP PRN PRN Reason: PAIN LEVEL > 6 Mupirocin (Bactroban Oint 2%) 1 dose NARES BID [facility] Stop: 04/01/19 21:00 Last Admin: 03/28/19 09:20 Dose: 1 dose Documented by: Nicotine (Nicoderm) 14 mg TOPICAL DAILY@1000 [facility] Last Admin: 03/28/19 09:18 Dose: 14 mg Documented by: Ondansetron HCl (Zofran) 4 mg IV Q4-6HP PRN PRN Reason: Nausea And Vomiting Potassium Chloride (Klor-Con) 40 meq PO DAILYP PRN PRN Reason: K+ < 3.5 Senna/Docusate Sodium (Senna Plus Tablet) 1 tab PO HS [facility] Last Admin: 03/27/19 20:08 Dose: 1 tab Documented by: Sodium Chloride (Saline Flush) 10 ml IV Q8 [facility] Last Admin: 03/28/19 04:11 Dose: 10 ml Documented by: Tramadol HCl (Ultram) 50 mg PO Q4-6HP PRN PRN Reason: Pain Vancomycin HCl (Vancomycin Per Pharmacy) 1 order IV UD [facility]; Protocol Medical - PN: A/P - Time Spent With Patient Total time spent is greater than 50% in coordination of care (as documented) at patient's floor/unit and/or counseling patient: 15 - 24 minutes (1) Olecranon bursitis Status: Acute Assessment and plan: * Right olecranon infectious bursitis with MRSA on culture-continue IV vancomycin per ID. Postoperative management as per orthopedics * Postop pain management-stable * Sepsis clinically resolved. White count normalized * History of polysubstance abuse-continue monitoring for withdrawal symptoms * Elevated blood sugars Dysmetabolic syndrome. A1c 6.4. Start metformin extended release * Hyponatremia resolved * DVT prophylaxis ambulation * Full code Plan * Metformin extended release * continue antibiotics per ID * Continue inpatient treatment Current Visit: Yes Medical - PN: Qual - VTE Deep Vein Thrombosis/Pulmonary Embolism Present on Admission: No
--- NOTE | 2019-03-28 11:03 | Infectious Disease Prog Note ---
Subjective Patient information: Note initiated : 03/28/19 at 11:00 am Service Date, if different from initiated Date: [] Patient: Leonard Mathias 38 y/o M admitted on 03/26/19 for Infected elbow. Chief Complaint: [] Interval history: Pt is doing better. Denies any fever, chills, n/v/diarrghea. The right elbow pain is around 8/10, feels it is better than at admission. Pt mentions that he has [place] Medicaid and should be able to go to a NH. Objective Objective Narrative: ao x 3, in nad no thrush right elbow could not examined (as dressed. Per nursing Ortho recs to leave the bandage on for 3 days) right hand is swollen, pitting edema 1+. can move his right hand without any dif ficulty or pain. - Vital Signs Vital signs: Vital Signs Temp Pulse Resp BP Pulse Ox 03/28/19 03:55 36.6 C 94 H 20 158/90 97 03/28/19 00:00 36.6 C 95 H 16 147/84 96 03/27/19 19:57 95 H 16 96 03/27/19 19:53 36.6 C 95 H 16 130/76 96 03/27/19 15:45 37.4 C H 100 H 16 124/60 96 03/27/19 12:00 36.1 C L 102 H 20 125/70 97 Intake and Output 03/27/19 03/28/19 03/28/19 21:59 05:59 13:59 Intake Total 1320 1100 Output Total 1650 600 Balance -330 500 Intake: IV 500 Vancomycin 1,500 mg In Sodium 500 Chloride 0.9% 500 ml @ 333.3 mls/hr IV Q12H [facility] Rx#: [id number] Oral 1320 600 Output: Void Amount 1650 600 Other: Meal Dinner Percent of Meal Consumed 100% Urine Appearance Clear # Voids 1 Weight 136.531 kg Intake & Output: Intake & Output 03/27/19 03/28/19 03/28/19 21:59 05:59 13:59 Intake Total 1320 1100 Output Total 1650 600 Balance -330 500 Weight 136.531 kg Intake: IV 500 Vancomycin 1,500 mg In Sodium 500 Chloride 0.9% 500 ml @ 333.3 mls/hr IV Q12H [facility] Rx#: [id number] Oral 1320 600 Output: Void Amount 1650 600 Other: Meal Dinner Percent of Meal Consumed 100% Urine Appearance Clear # Voids 1 - Lab 03/28/19 03:50 03/28/19 03:50 Most recent lab results Calcium 8.5 mg/dl (8.6-10.4) L 03/28/19 03:50 Phosphorus 3.4 mg/dL (2.7-4.5) 03/28/19 03:50 Magnesium 2.0 mg/dL (1.6-2.5) 03/28/19 03:50 Microbiology 03/26/19 18:04 Elbow - Right Gram Stain - Final 03/26/19 18:04 Elbow - Right Wound Culture - Preliminary Methicillin resistant s.aureus 03/27/19 10:55 Nose MRSA (PCR) - Final MRSA PCR positive 03/26/19 18:04 Elbow - Right Gram Stain - Final 03/26/19 18:04 Elbow - Right Anaerobic Culture - Preliminary Medications Active Medications: Acetaminophen (Tylenol) 650 mg PO Q4-6HP PRN PRN Reason: PAIN/FEVER > 101 Hydrocodone Bitart/Acetaminophen ([place] 10/325mg) 1 tab PO Q4-6HP PRN PRN Reason: PAIN LEVEL 3-6 Last Admin: 03/28/19 09:20 Dose: 1 tab Documented by: [id number] Admin: 03/28/19 04:10 Dose: 1 tab Documented by: Admin: 03/27/19 20:08 Dose: 1 tab Documented by: Admin: 03/27/19 15:39 Dose: 1 tab Documented by: [email or web address] Admin: 03/27/19 12:11 Dose: 1 tab Documented by: [email or web address] Admin: 03/27/19 07:09 Dose: 1 tab Documented by: [email or web address] Admin: 03/27/19 00:58 Dose: 1 tab Documented by: Admin: 03/26/19 21:00 Dose: 1 tab Documented by: MICHELLE Albuterol/Ipratropium (Duoneb) 3 ml NEB Q4HP PRN PRN Reason: Shortness Of Breath Dextrose (Dextrose 50%) 0 ml IV UD PRN PRN Reason: Hypoglycemia Diagnostic Test (Pha) (Accu-Chek) 1 each FS ACHS [facility] Last Admin: 03/28/19 09:18 Dose: 1 each Documented by: [id number] Admin: 03/27/19 20:11 Dose: 1 each Documented by: Admin: 03/27/19 16:53 Dose: 1 each [facility]: [facility] Admin: 03/27/19 12:11 Dose: 1 each Documented by: [facility] Docusate Sodium (Colace) 100 mg PO BID [facility] Last Admin: 03/28/19 09:20 Dose: 100 mg Documented by: [email or web address] Admin: 03/27/19 20:08 Dose: 100 mg Documented by: Admin: 03/27/19 09:04 Dose: 100 mg Documented by: [facility] Admin: 03/26/19 21:00 Dose: 100 mg Documented by: MICHELLE Glucose (Insta-Glucose) 15 gm PO PRN PRN PRN Reason: Hypoglycemia Vancomycin HCl 1,500 mg/ (Sodium Chloride) 500 mls @ 333.3 mls/hr IV Q12H [facility]; Protocol Last Infusion: 03/28/19 04:11 Dose: 333 mls/hr Documented by: Admin: 03/27/19 20:09 Dose: 333 mls/hr Documented by: Infusion: 03/27/19 10:55 Dose: 0 mls/hr [facility]ed [facility]: [facility] Admin: 03/27/19 09:03 Dose: 333 mls/hr [facility]ed [facility]: [facility] Infusion: 03/27/19 00:23 Dose: 333 mls/hr Documented by: Admin: 03/26/19 22:28 Dose: 333.3 mls/hr Documented by: MICHELLE Magnesium Sulfate (Magnesium Sulfate) 2 gm in 50 mls @ 50 mls/hr IV UD PRN PRN Reason: MG = or < 1.7 Acetaminophen (Ofirmev) 1,000 mg in 100 mls @ 200 mls/hr IV Q6HP PRN PRN Reason: PAIN/FEVER > 101 Insulin Human Lispro (Humalog) 0 unit SQ [facility]; Protocol Last Admin: 03/28/19 09:19 Dose: Not Given Documented by: [id number] Non-Admin Reason: No Coverage Needed Admin: 03/27/19 20:12 Dose: 2 mg Documented by: Admin: 03/27/19 17:20 Dose: 2 mg Documented by: [email or web address] Admin: 03/27/19 12:27 Dose: 1 mg Documented by: [email or web address] Iron Carb/Multivit/[place]/Folic Acid (Multivitamin W/Minerals) 1 tab PO DAILY [facility] Last Admin: 03/28/19 09:20 Dose: 1 tab Documented by: [email or web address] Admin: 03/27/19 09:04 Dose: 1 tab Documented by: [email or web address] Magnesium Hydroxide (Milk Of Magnesia) 30 ml PO HSP PRN PRN Reason: Constipation Melatonin (Melatonin 3mg Tablet) 3 mg PO HSP PRN PRN Reason: Insomnia Metformin HCl (Glucophage) 500 mg PO BIDCC [facility] Morphine Sulfate (Morphine) 2 mg IV Q1HP PRN PRN Reason: PAIN LEVEL > 6 Mupirocin (Bactroban Oint 2%) 1 dose NARES BID [facility] Stop: 04/01/19 21:00 Last Admin: 03/28/19 09:20 Dose: 1 dose Documented by: [email or web address] Admin: 03/27/19 20:09 Dose: 1 dose Documented by: MICHELLE Nicotine (Nicoderm) 14 mg TOPICAL DAILY@1000 [facility] Last Admin: 03/28/19 09:18 Dose: 14 mg Documented by: [email or web address] Admin: 03/27/19 12:27 Dose: 14 mg Documented by: [email or web address] Ondansetron HCl (Zofran) 4 mg IV Q4-6HP PRN PRN Reason: Nausea And Vomiting Potassium Chloride (Klor-Con) 40 meq PO DAILYP PRN PRN Reason: K+ < 3.5 Senna/Docusate Sodium (Senna Plus Tablet) 1 tab PO HS [facility] Last Admin: 03/27/19 20:08 Dose: 1 tab Documented by: Admin: 03/26/19 21:00 Dose: 1 tab Documented by: MICHELLE Sodium Chloride (Saline Flush) 10 ml IV Q8 [facility] Last Admin: 03/28/19 04:11 Dose: 10 ml Documented by: Admin: 03/27/19 21:01 Dose: 10 ml Documented by: Admin: 03/27/19 15:39 Dose: 10 ml Documented by: [email or web address] Admin: 03/27/19 05:50 Dose: 10 ml Documented by: Admin: 03/26/19 22:03 Dose: 10 ml Documented by: MICHELLE Tramadol HCl (Ultram) 50 mg PO Q4-6HP PRN PRN Reason: Pain Vancomycin HCl (Vancomycin Per Pharmacy) 1 order IV UD [facility]; Protocol Assessment and Plan - Narrative A/P Narrative: A: 1. Rt elbow septic bursitis and surrounding cellulitis due to MRSA: - POD 2 after surgical I&D of right elbow, op Cx growing MRSA - no sepsis - right hand is still swollen 2. Homeless 3. MRSA carrier: - nasal MRSA screen +ve 4. Past history of IV drug use Recommendations: - Continue IV Vanc per pharmacy assisted dosing. Vanc trough 9.3 this am. Spoke with pharmacy and Vanc dose frequency increased to 1 gm q8 hrs. Check trough before the next 4th dose (target 10-20). - A midline could be placed if going to a prison or to a swing bed. Anticipate 2 weeks of IV Vanc with subseq ID f/u. Linezolid is an option (if acceptable to SNF) - will plan ID f/u near discharge - Continue MRSA decolonization for 5 days, day 2/5: Intranasal mupirocin 2% intranasally bid below neck whole body CHG bathing once daily will follow Elliot Alejandre MD Infectious diseases
[2019-03-28] MEDS: VANCOMYCIN 1,500 MG in 0.9 % SODIUM CHLORIDE 500 ML IV SCH (11:14)
[2019-03-28] MEDS: metFORMIN 500 MG TAB.XL.24H PO SCH ×2 (11:27→18:32)
[2019-03-28] MEDS: SENNOSIDES/DOCUSATE SODIUM 1 TAB TABLET PO SCH (21:01)
[2019-03-28] MEDS: VANCOMYCIN 1,000 MG in 0.9 % SODIUM CHLORIDE 250 ML IV SCH (21:31)
[2019-03-29] MEDS: HYDROcodone/APAP 10/325MG TABLET PO PRN (03:20)
[2019-03-29 05:32] LABS: Hematocrit 39.5 % (41.0-55.0); Hemoglobin 12.6 g/dL (13.5-16.5); Mean Cell Volume 87.3 fL (80.0-100.0); Mean Corpuscular HGB Conc 31.8 g/dL (31.0-36.0); Mean Platelet Volume 7.1 fL (7.4-10.4); Platelet Count 415 K/mcL (140-440); RBC 4.52 M/mcL (4.50-5.90); Red Cell Distribution Width 15.3 % (11.5-14.5); WBC 9.5 K/mcL (4.5-11.0)
[2019-03-29] MEDS: 0.9 % SODIUM CHLORIDE 10 ML SYRINGE IV SCH (05:50)
[2019-03-29] MEDS: VANCOMYCIN 1,000 MG in 0.9 % SODIUM CHLORIDE 250 ML IV SCH (05:51)
[2019-03-29 06:31] LABS: ALT/SGPT 28 U/l (0-40); AST/SGOT 21 U/l (0-37); Albumin/Globulin Ratio 0.9 (1.0-2.3); Alkaline Phosphatase 99 U/L (39-117); Bilirubin,Direct < 0.2 mg/dL (0.0-0.3); Bilirubin,Total < 0.2 mg/dL (0.0-1.0); Blood Urea Nitrogen 13 mg/dl (6-20); Carbon Dioxide 26 mmol/L (22-30); Chloride 100 mmol/L (96-108); Globulin 3.5 gm/dL (2.2-3.7); Glomerular Filtration Rate 119; Glucose 90 mg/dL (70-105); Lactate Dehydrogenase 225 U/L (94-250); Phosphorous 4.2 mg/dL (2.7-4.5); Triglycerides 129 mg/dl (<150); Uric Acid 5.4 mg/dL (2.5-8.0)
[2019-03-29 08:18] LABS: Band Neutrophils % 3 % (0-10); Basophils % (Manual) 2 % (0-2); Eosinophils % (Manual) 3 % (0-7); Lymphocytes % 27 % (15-49); Monocytes % (Manual) 6 % (1-12); Platelet Estimate NORMAL (NORMAL); RBC Morphology NORMAL (NORMAL); Segmented Neutrophils % 59 % (38-78)
[2019-03-29] MEDS: metFORMIN 500 MG TAB.XL.24H PO SCH (09:18)
[2019-03-29] MEDS: MULTIVIT,THER IRON,CA,FA & MIN 1 TABLET PO SCH (09:18)
[2019-03-29] MEDS: DOCUSATE SODIUM 100 MG CAPSULE PO SCH (09:18)
[2019-03-29] MEDS: MUPIROCIN OINT 2% 22GM NARES SCH (09:18)
[2019-03-29] MEDS: INSULIN LISPRO 1 UNIT/0.01 ML UNIT SQ SCH (09:36)
--- NOTE | 2019-03-29 11:21 | Discharge Summary ---
Medical - DS: Prov Patient information: Note initiated : 03/29/19 at 11:10 am Service Date, if different from initiated Date: [] Patient: Leonard Mathias 38 y/o M admitted on 03/26/19 for Infected elbow. Chief Complaint: [] Date of admission: 03/26/19 14:48 Discharge date: 03/29/19 Primary care physician: Nikita Stout Consults: 03/27/19 09:46 Consult to Physician [CONS] Routine Comment: Consulting Provider: Elliot Alejandre Reason For Exam: Physician to Consult Medical - DS: Meds - Discharge Medications Prescriptions: HYDROcodone/APAP 10/325MG [[place] 10-325Mg] 1 tab PO Q4-6HP PRN #10 tablet PRN Reason: Pain Level 3-6 Linezolid [Zyvox] 600 mg PO Q12 #22 tab metFORMIN [Glucophage] 500 mg PO BIDCC #30 tab.xl.24h Active and Home Medications: Home Medications Linezolid [Zyvox] 600 mg PO Q12 #22 tab 03/29/19 [Rx Last Taken Unknown] Medical - DS: Hosp Hospital Course: Discharge diagnosis * Right olecranon infectious bursitis with MRSA on culture-continue Zyvox for additional 11 days * Postop pain management-stable. Continue as needed opioid * Sepsis clinically resolved. White count normalized * History of polysubstance abuse-counseled against using substance * Elevated blood sugars/Dysmetabolic syndrome. A1c 6.4. Continue metformin extended release * Hyponatremia resolved Brief hospital course Mr. Mathias is a 38 year old M transferred from [facility]. Patient was admitted/ with right elbow swelling and pain and was diagnosed with right olecranon bursitis which was tapped and revealed MRSA. Patient was on Zosyn and vancomycin. However over the ensuing 48 hours of hospitalization patient failed to improve with extension of redness cellulitis down to the hand and proximally into the axilla. Subsequently orthopedics Dr. Prescott was consulted by Dr. Flores sandwich maker at [facility]. Patient initially presented with a white count of 21,000 which improved to 11,000 x 48 hours into treatment. Patient was transferred to [facility] in stable state and subsequently underwent operative intervention with olecranon bursectomy. Postoperatively patient was reviewed on the medical floor. I reviewed the charts from prior hospitalization. Patient carries a history of prediabetes with last A1c 6.4. He is postop. Patient is homeless has a history of methamphetamine abuse. His drug screen was positive however patient denied using IV drugs as per physician at [facility]. 03/27-doing well postoperative. Postop pain well controlled. No overnight fever chills. White count stable. Cultures reviewed from [facility]. MRSA on wound. ID consulted. Await further recommendations. Continue antibiotic as per ID. Case discussed with Dr. Prescott. No clinical evidence of septic arthritis per orthopedics. 03/28-patient doing well. No overnight events. White count 9.9. On IV antib iotic coverage as per ID. Continue inpatient care. No other concerns expressed to nursing staff except for elevated blood sugars. On CC diet/started on metformin. 03/29-patient doing well. No overnight events. No concerns per staff. ID recommends discharging on additional 11 days of Zyvox along with orthopedics follow-up for wound dressing and postoperative care Discharge diagnosis: . - Time Spent with Patient Total time spent providing and/or coordinating discharge services: Greater than 30 minutes Medical - DS: Exam - Constitutional Vitals: Vital Signs Temp Pulse Resp BP Pulse Ox 03/29/19 08:00 98.2 F 16 144/92 96 03/29/19 03:15 97.6 F 89 12 141/83 93 03/29/19 00:00 97.3 F 80 16 121/72 03/28/19 20:00 97.6 F 92 H 20 143/85 94 03/28/19 16:00 97.6 F 103 H 18 163/93 97 03/28/19 12:00 97.6 F 88 20 137/74 95 Intake and Output 03/28/19 03/29/19 03/29/19 21:59 05:59 13:59 Intake Total 240 1115 250 Output Total 300 1375 Balance -60 -260 250 Intake: IV 250 250 Vancomycin 1,000 mg In Sodium 250 250 Chloride 0.9% 250 ml @ 250 mls/ hr IV Q8H KELVIN Rx#:[id number] Oral 240 865 Output: Void Amount 300 1375 Other: Meal Dinner Snack Percent of Meal Consumed 100% 100% Feeding Ability Assist with Tray Set Up Independent Urine Appearance Clear Urine Color Dark Yellow Bright Yellow Urine Odor Strong Normal Weight 296 lb Medical - DS: Data Labs on day of discharge: Labs from last 24 hours 03/29/19 03/29/19 04:00 04:00 WBC 9.5 RBC 4.52 Hgb 12.6 L Hct 39.5 L MCV 87.3 MCH 27.8 MCHC 31.8 RDW 15.3 H Plt Count 415 MPV 7.1 L Total Counted 100 Seg Neutrophils % 59 Band Neutrophils % 3 Lymphocytes % 27 Monocytes % (Manual) 6 Eosinophils % (Manual) 3 Basophils % (Manual) 2 Platelet Estimate Normal RBC Morphology Normal Sodium 140 Potassium 4.1 Chloride 100 Carbon Dioxide 26 Anion Gap 14.0 BUN 13 Creatinine 0.7 GFR Calculation 119 Glucose 90 Uric Acid 5.4 Calcium 9.0 Phosphorus 4.2 Magnesium 1.9 Total Bilirubin < 0.2 Direct Bilirubin < 0.2 GGT 21 AST 21 ALT 28 Alkaline Phosphatase 99 Lactate Dehydrogenase 225 Total Protein 6.5 Albumin 3.0 L Globulin 3.5 Albumin/Globulin Ratio 0.9 L Triglycerides 129 Preliminary micro results at discharge 03/26/19 18:04 Anaerobic Culture - Preliminary Elbow - Right 03/26/19 18:04 Wound Culture - Preliminary Elbow - Right Methicillin resistant s.aureus Medical - DS: A/P - Patient/Caregiver Discharge Instructions Activity: increase activity as tolerated Diet: Regular Diet Additional Instructions: Discharge Instructions: Continue Zyvox for additional 11 days Follow-up orthopedics for continued wound care/postoperative follow-ups Remove dressing daily and apply new gauze to incision site and replace splint and wrap with JAMEY wrap daily. You have a new prescription for Zyvoxx which is your antibiotic that you need to continue for you elbow infection. Take all of this medication as directed. Prescriptions: Linezolid [Zyvox] 600 mg PO Q12 #22 tab - Problem Maintenance (1) Olecranon bursitis Status: Acute - Follow up Plan Follow up with: Elliot Alejandre MD [Physician] - 04/08/19 3:30 pm Russ Prescott MD [Physician] - 04/08/19 9:30 am Disposition: Home, Self-Care Care Plan Goals: This discharge packet is provided to you to help keep you informed about your care. We want to ensure you get everything you need when you go home. You will also be receiving a call from us in a few days to follow up with you and see how you are doing since your discharge. This gives us a chance to listen to any concerns you maybe experiencing since you were discharged or any additional needs you may have, as well as providing us feedback on your care experience. We strive to always provide excellent care and thank you for your feedback and for choosing [facility]. Prognosis: Fair Rehab Potential: Fair I certify that the patient requires SNF services: No Overall status at discharge: patient is progressing back to baseline Medical - DS: Qual - VTE Deep Vein Thrombosis/Pulmonary Embolism Present on Admission: No
[2019-03-29] MEDS: NICOTINE 14 MG PATCH TOPICAL SCH (11:26)
--- NOTE | 2019-03-29 18:04 | Infectious Disease Prog Note ---
Subjective Patient information: Note initiated : 03/29/19 at 6:01 pm Service Date, if different from initiated Date: [] Patient: Leonard Mathias 38 y/o M admitted on 03/26/19 for Infected elbow. Chief Complaint: [] Interval history: pt feels better. endorses mild pain in rt elbow. denies fever, chills, n/v/diarrhea. shared ID f/u plan, and to do oral antibiotics for 11 more days. Pt voiced understanding Objective Objective Narrative: ao x 3 in nad no thrush the right elbow: swollen, red, tender on deep palpation. The sutures are intact with some serous drainage on pressure, no pus. mild pain with motion around elbow jt - Vital Signs Vital signs: Vital Signs Temp Pulse Resp BP Pulse Ox 03/29/19 12:00 36.3 C 20 148/103 98 03/29/19 08:00 36.8 C 16 144/92 96 03/29/19 03:15 36.4 C 89 12 141/83 93 03/29/19 00:00 36.3 C 80 16 121/72 03/28/19 20:00 36.4 C 92 H 20 143/85 94 Intake and Output 03/29/19 03/29/19 03/29/19 05:59 13:59 21:59 Intake Total 1115 250 Output Total 1375 Balance -260 250 Intake: IV 250 250 Vancomycin 1,000 mg In Sodium 250 250 Chloride 0.9% 250 ml @ 250 mls/ hr IV Q8H [facility]EL[facility] Rx#:[id number] Oral 865 Output: Void Amount 1375 Other: Meal Snack Percent of Meal Consumed 100% Feeding Ability Independent Urine Appearance Clear Urine Color Bright Yellow Urine Odor Normal Intake & Output: Intake & Output 03/29/19 03/29/19 03/29/19 05:59 13:59 21:59 Intake Total 1115 250 Output Total 1375 Balance -260 250 Intake: IV 250 250 Vancomycin 1,000 mg In Sodium 250 250 Chloride 0.9% 250 ml @ 250 mls/ hr IV Q8H KELVIN Rx#:[id number] Oral 865 Output: Void Amount 1375 Other: Meal Snack Percent of Meal Consumed 100% Feeding Ability Independent Urine Appearance Clear Urine Color Bright Yellow Urine Odor Normal - Lab 03/29/19 04:00 03/29/19 04:00 Most recent lab results Calcium 9.0 mg/dl (8.6-10.4) 03/29/19 04:00 Phosphorus 4.2 mg/dL (2.7-4.5) 03/29/19 04:00 Magnesium 1.9 mg/dL (1.6-2.5) 03/29/19 04:00 Microbiology 03/26/19 18:04 Elbow - Right Gram Stain - Final 03/26/19 18:04 Elbow - Right Wound Culture - Final Methicillin resistant s.aureus 03/26/19 18:04 Elbow - Right Gram Stain - Final 03/26/19 18:04 Elbow - Right Anaerobic Culture - Preliminary 03/27/19 10:55 Nose MRSA (PCR) - Final MRSA PCR positive Assessment and Plan - Narrative A/P Narrative: A: 1. Rt elbow septic bursitis and surrounding cellulitis due to MRSA: - POD 3 after surgical I&D of right elbow, op Cx growing MRSA - no sepsis 2. Homeless 3. MRSA carrier: - nasal MRSA screen +ve 4. Past history of IV drug use Recommendations: - Start PO Linezolid 600 mg bid x 11 more days to complete 2 weeks of highly bioavailable antibiotic therapy (tentative stop date 04/09/19) - Continue MRSA decolonization for 5 days, day 3/5: Intranasal mupirocin 2% intranasally bid below neck whole body CHG bathing once daily will see in ID clinic on 04/08 at 3:30 pm Elliot Alejandre MD Infectious diseases
[2019-04-01 13:40] LABS: Cannabinoid Confirmation POSITIVE (N)
== END 2019-03-29 14:00 | disposition home or self-care (01) | DRG 854 ==
LOC: MEDSUR 14:48
PROVIDERS: ADMIT Internal Medicine; ATTEND Internal Medicine